=== PATIENT | male | born 1935 | race African-American/Black ===

== ENCOUNTER 2020-04-05 16:06 | Inpatient (IN) ==
[2020-04-05 16:53] LABS: Basophils % 0.3 % (0.0-0.8); Hematocrit 35.8 VOL% (42.0-52.0); Hemoglobin 11.6 GM/DL (14.0-18.0); Immature Granulocytes % 0.6 %; Immature Granulocytes Absolute 0.06 #; Lymphocytes # 0.7 10*3/uL (1.4-4.0); Lymphocytes % 7.2 % (21.2-54.2); Mean Corpuscular HGB Conc 32.4 GM/DL (32-36); Mean Corpuscular Volume 86.7 FL (87-102); Mean Platelet Volume 10.8 FL (9.6-12.0); Monocytes % 12.6 % (1.7-12.7); Neutrophils % 79.3 % (38.7-73.9); Platelet Count 297 T/CUMM (130-400); Red Blood Count 4.13 MC/CUMM (3.8-5.5); Red Cell Distribution Width 14.7 % (9.3-17.3)
[2020-04-05 17:20] LABS: Bilirubin,Total 0.6 MG/DL (0.2-1.0); Calcium 9.5 MG/DL (8.5-10.1); Osmolality,Calculated 278.5 MOS/KG (273-304); Total Protein 7.5 G/DL (6.4-8.3)
[2020-04-05 17:39] LABS: Apearance,Urine CLEAR (Clear); Bilirubin,Urine Negative (Negative); Blood, Urine Small mg/dL (Negative); Glucose,Urine (UA) Negative (Negative); Ketones,Urine 5 mg/dL (Negative); Mucus,Urine Occasional /LPF (Occasional); Nitrite,Urine Negative (Negative); Protein,Urine 30 MG/DL; RBC,Urine 6 /HPF (0-4); Squamous Epithelial Cell,Urine Occasional /HPF (0-10); Urine Color Amber (Yellow); Urine Specific Gravity 1.021 (1.001-1.035); WBC,Urine 91 /HPF (0-6)
[2020-04-05] MEDS ORDERED: LEVOFLOXACIN INJ 750 MG in PREMIX 1 EACH IV STA (18:23)
[2020-04-05] MEDS ORDERED: DEXTROSE 50% 25 GM/50 ML VIAL IV PRN (18:33)
[2020-04-05] MEDS ORDERED: GLUCAGON 1 MG VIAL IM PRN (18:33)
[2020-04-05] MEDS ORDERED: ALBUTEROL/IPRATROPIUM 3 ML NEB RESP TX PRN (19:19)
[2020-04-05] MEDS ORDERED: APIXABAN 5 MG TABLET PO SCH (21:00)
[2020-04-05] MEDS: methylPREDNISolone SOD SUC 40 MG/1 ML VIAL IV SCH (21:40)
[2020-04-05] MEDS: TAMSULOSIN 0.4 MG CAPSULE PO SCH (21:40)
[2020-04-05] MEDS: MONTELUKAST 10 MG TABLET PO SCH (21:58)
[2020-04-05] MEDS ORDERED: DEXTROSE 50% 25 GM/50 ML SYRINGE IV ONE (23:21)
[2020-04-06] MEDS: ALBUTEROL/IPRATROPIUM 3 ML NEB RESP TX SCH ×4 (01:15→19:58)
[2020-04-06 04:47] LABS: Basophils % 0.1 % (0.0-0.8); Hematocrit 33.9 VOL% (42.0-52.0); Immature Granulocytes % 0.4 %; Immature Granulocytes Absolute 0.03 #; Lymphocytes # 0.5 10*3/uL (1.4-4.0); Lymphocytes % 7.5 % (21.2-54.2); Mean Corpuscular HGB Conc 32.4 GM/DL (32-36); Mean Corpuscular Volume 86.5 FL (87-102); Mean Platelet Volume 11.1 FL (9.6-12.0); Monocytes % 2.7 % (1.7-12.7); Neutrophils % 89.3 % (38.7-73.9); Platelet Count 286 T/CUMM (130-400); Red Blood Count 3.92 MC/CUMM (3.8-5.5); Red Cell Distribution Width 14.6 % (9.3-17.3); White Blood Count 6.9 T/CUMM (4-12)
[2020-04-06 04:51] LABS: Calcium 8.9 MG/DL (8.5-10.1); Osmolality,Calculated 275.8 MOS/KG (273-304); Risk Ratio 5.8; VLDL CHOLESTEROL 22.2 MG/DL
[2020-04-06 05:17] LABS: Hypochromasia 1+; Ovalocytes 2+; Platelet Estimate Normal
[2020-04-06] MEDS: methylPREDNISolone SOD SUC 40 MG/1 ML VIAL IV SCH ×3 (07:20→21:31)
[2020-04-06] MEDS: TAMSULOSIN 0.4 MG CAPSULE PO SCH ×2 (09:39→21:33)
[2020-04-06] MEDS: LEVOFLOXACIN INJ 750 MG in PREMIX 1 EACH IV SCH (09:40)
[2020-04-06] MEDS: APIXABAN 5 MG TABLET PO SCH (21:33)
[2020-04-06] MEDS: MONTELUKAST 10 MG TABLET PO SCH (21:33)
[2020-04-06] MEDS ORDERED: rOPINIRole 4 MG TABLET PO SCH (23:00)
[2020-04-07] MEDS: ALBUTEROL/IPRATROPIUM 3 ML NEB RESP TX SCH ×3 (00:35→13:13)
[2020-04-07 06:04] LABS: Basophils % 0.1 % (0.0-0.8); Hematocrit 31.4 VOL% (42.0-52.0); Hemoglobin 10.2 GM/DL (14.0-18.0); Immature Granulocytes % 0.9 %; Immature Granulocytes Absolute 0.08 #; Lymphocytes # 0.5 10*3/uL (1.4-4.0); Lymphocytes % 5.7 % (21.2-54.2); Mean Corpuscular HGB Conc 32.5 GM/DL (32-36); Mean Corpuscular Volume 84.2 FL (87-102); Mean Platelet Volume 11.3 FL (9.6-12.0); Neutrophils % 88.3 % (38.7-73.9); Platelet Count 331 T/CUMM (130-400); Red Blood Count 3.73 MC/CUMM (3.8-5.5); Red Cell Distribution Width 14.5 % (9.3-17.3); White Blood Count 9.1 T/CUMM (4-12)
[2020-04-07] MEDS: methylPREDNISolone SOD SUC 40 MG/1 ML VIAL IV SCH ×2 (06:27→13:28)
[2020-04-07 06:29] LABS: Calcium 9.3 MG/DL (8.5-10.1); Osmolality,Calculated 283.7 MOS/KG (273-304)
[2020-04-07] MEDS: APIXABAN 5 MG TABLET PO SCH (09:13)
[2020-04-07] MEDS: LEVOFLOXACIN INJ 750 MG in PREMIX 1 EACH IV SCH (09:13)
[2020-04-07] MEDS: TAMSULOSIN 0.4 MG CAPSULE PO SCH (09:13)
[2020-04-07 11:37] VITALS: BP 133/69
[2020-04-08] MEDS ORDERED: LEVOFLOXACIN 500 MG TABLET PO SCH (09:00)
== END 2020-04-07 14:50 | disposition home or self-care (01) | DRG 191 ==
LOC: EDUNIT# → EDBD → N.ED 16:06 → N.EDINP 18:33 → N.5E 04-06 14:09
PROVIDERS: ADMIT Internal Medicine; ATTEND Internal Medicine